=== PATIENT | male | born 1990 | race Two or more races ===

== ENCOUNTER 2017-03-29 05:38 | Inpatient (IN) | payer OTHER ==
[2017-03-29] VITALS (11 sets, daily range): BP systolic 117–145; BP diastolic 78–99
[~2017-03-29] VITALS: Ht 170.2 cm; Wt 57.6 kg
[~2017-03-29 05:38] MED LIST: NKM
[2017-03-29] MEDS ORDERED: Dexamethasone 20mg/5ml IVP ONE (06:00)
[2017-03-29] MEDS ORDERED: LR 1000ml 1,000 ML IVLG SCH (06:12)
[2017-03-29] MEDS ORDERED: Atropine Inj 1mg/10ml Syr IV PRN (06:15)
[2017-03-29] MEDS ORDERED: DiphenhydrAMINE 50mg/ml Inj IVP PRN (06:15)
[2017-03-29] MEDS ORDERED: HYDROcodone/Acetamin 7.5/325 tab ORAL PRN (06:15)
[2017-03-29] MEDS ORDERED: LORazepam Inj 2mg/ml 1ml IV PRN (06:15)
[2017-03-29] MEDS ORDERED: Ketorolac 60mg Inj IV PRN (06:15)
[2017-03-29] MEDS ORDERED: Ketorolac 30mg Inj IV PRN (06:15)
[2017-03-29] MEDS ORDERED: Norco 5mg/325mg tab ORAL PRN (06:15)
[2017-03-29] MEDS ORDERED: oxyCODONE HCL/Acetaminophen 5/325mg ORAL PRN (06:15)
[2017-03-29] MEDS ORDERED: Hydromorphone 0.5mg/0.5ml inj IVP PRN (06:15)
[2017-03-29] MEDS ORDERED: fentaNYL 100 mcg/2 mL IV PRN (06:15)
[2017-03-29] MEDS ORDERED: Labetalol 5mg/ml 20ml vial IV PRN (06:15)
[2017-03-29] MEDS ORDERED: Midazolam 2mg/2ml Inj IVP PRN (06:15)
[2017-03-29] MEDS ORDERED: Thrombin 5000 units TOPIC ONE (06:24)
[2017-03-29] MEDS ORDERED: Surgicel 4in x 8in TOPIC ONE (06:25)
[2017-03-29] MEDS ORDERED: Lidocaine 1% Plain 30 ml INJ ONE (06:25)
[2017-03-29] MEDS ORDERED: Bacitracin 50000 Units Vial ONE (06:26)
[2017-03-29] MEDS ORDERED: Vancomycin 1gm inj IVPB ONE (06:26)
--- NOTE | 2017-03-29 06:53 | Anethesia Preoperative Eval ---
Anesthesia Pre-op PMH/ROS General Date of Evaluation: Mar 29, 2017 Time of Evaluation: 07:11 Anesthesiologist: Chidi ASA Score: ASA 1 Mallampati Score Class I : Soft palate, uvula, fauces, pillars visible Class II: Soft palate, uvula, fauces visible Class III: Soft palate, base of uvula visible Class IV: Only hard plate visible Mallampati Classification: Class I Surgeon: Tyree Diagnosis: Neck Pain Surgical Procedure: ACDF C4-5, C5-6 Anesthesia History: none Family History: no anesthesia problems Allergies: Coded Allergies: No Known Allergies (Unverified , 03/29/17) Medications: see eMAR Anesthesia Pre-op Phys. Exam Physician Exam Last Vital Signs Date Time Temp Pulse Resp B/P (MAP) Pulse Ox O2 Delivery O2 Flow Rate FiO2 03/29/17 06:30 98.3 94 18 145/78 100 Room Air Constitutional: NAD Neurologic: CN 2-12 intact Cardiovascular: RRR Respiratory: CTA Gastrointestinal: S/NT/ND Airway Exam Mallampati Score: Class I MO: full ROM: full Teeth: intact Anesthesia Pre-op A/P Risk Assessment & Plan Assessment: ASA 1 Plan: GA, BIS, GlideScope Status Change Before Surgery: No Pre-Antibiotics Dru Grams Ancef IV Given Within 1 Hr of Incision: Yes Time Given: 07:36 Javier Murillo MD Mar 29, 2017 06:53
--- NOTE | 2017-03-29 06:54 | Immediate Post-Op Evaluation ---
Immediate Post-Op Evalulation Immediate Post-Op Evalulation Procedure: ACDF C4-5, C5-6 Date of Evaluation: Mar 29, 2017 Time of Evaluation: 10:35 IV Fluids: 800 LR Blood Products: 0 Estimated Blood Loss: 25 Urinary Output: 0 Blood Pressure Systolic: 140 Blood Pressure Diastolic: 101 Pulse Rate: 101 Respiratory Rate: 16 O2 Sat by Pulse Oximetry: 100 Temperature (Fahrenheit): 97.6 Pain Score (1-10): 3 Nausea: No Vomiting: No Complications 0 Patient Status: awake, reacts, patent, extubated, none Hydration Status: adequate Dru Grams Ancef IV Given Within 1 Hr of Incision: Yes Time Given: 07:36 Javier Murillo MD Mar 29, 2017 06:54
--- NOTE | 2017-03-29 06:55 | 48 Hour Post Anesthesia Eval ---
Post Anesthesia Evaluation Procedure: ACDF C4-5, C5-6 Date of Evaluation: Mar 29, 2017 Time of Evaluation: 12:42 Blood Pressure Systolic: 134 0: 78 Pulse Rate: 81 Respiratory Rate: 18 Temperature (Fahrenheit): 98.4 O2 Sat by Pulse Oximetry: 100 Airway: patent Nausea: No Vomiting: No Pain Intensity: 3 Hydration Status: adequate Cardiopulmonary Status: Stable Mental Status/LOC: patient returned to baseline Follow-up Care/Observations: 0 Post-Anesthesia Complications: 0 Follow-up care needed: ready to discharge Javier Murillo MD Mar 29, 2017 06:55
[2017-03-29] MEDS ORDERED: Lidocaine 1% MPF 10mg/ml 5ml ONE (07:00)
[2017-03-29] MEDS ORDERED: NS Irrig 1000ml ONE (07:00)
[2017-03-29] MEDS ORDERED: HYDROmorphone 1mg/ml Carpuject SUBQ PRN (07:00)
[2017-03-29] MEDS ORDERED: Milk of Magnesia 30ml Ud ORAL PRN (07:00)
[2017-03-29] MEDS ORDERED: Zemuron 50mg/5ml Inj IV ONE (07:00)
[2017-03-29] MEDS ORDERED: Sterile Water Irrig 1000ml IRRIG ONE (07:00)
[2017-03-29] MEDS ORDERED: ceFAZolin sod 1 GM in NS 55 ML IVP ONE (07:00)
[2017-03-29] MEDS ORDERED: Sodium Chloride 10ml vial INJ ONE (07:00)
[2017-03-29] MEDS ORDERED: Labetalol 5mg/ml 20ml vial IV ONE (07:00)
[2017-03-29] MEDS ORDERED: Dexamethasone 4mg/ml vial IVP ONE (07:00)
[2017-03-29] MEDS ORDERED: fentaNYL 100 mcg/2 mL IV ONE (07:00)
[2017-03-29] MEDS ORDERED: LR 1000ml ONE (07:00)
[2017-03-29] MEDS ORDERED: HYDROcodone/Acetamin 10/325 tab ORAL PRN (07:00)
[2017-03-29] MEDS ORDERED: Propofol 1,000mg/ 100ml btl IV ONE (07:00)
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
[2017-03-29] MEDS ORDERED: Acetaminophen (Non formulary) 100 ML IV ONE (07:30)
--- NOTE | 2017-03-29 10:36 | Brief Operative Note ---
Immediate Post Operative Note Operative Note Pre-op Diagnosis: Post trauma neck pain, herniated nucleus pulposus, radiculopathy Procedure: ACDF C4-5, C5-6 Anterior Plate C4-5-6 Bio4 C4-5, C5-6 Microscopic Dissection SSEP Xray Post-op Diagnosis: same as pre-op Findings: consistent w/pre-op dx studies Surgeon: Tyree SEVERINO Ship Fastener: Yolanda BELTRAN Anesthesiologist: Chidi Anesthesia: general Specimen: none Complications: none Condition: stable Fluids: anesthesia Estimated Blood Loss: minimal Drains: none Implant(s) used?: Yes JOSE RAMON NELSON Mar 29, 2017 10:36
[2017-03-29] MEDS ORDERED: Naloxone 0.4mg/ml Inj IVP PRN (10:45)
--- NOTE | 2017-03-29 11:05 | Diagnostic Imaging Report ---
Indication: Pain, intraoperative Technique: Intraoperative images Comparison: none Findings: Intraoperative images document anterior fusion of C4-C6 with anterior plate and screws, placement of disc spacers at C4-5 and C5-6. Impression: Intraoperative imaging, as described
[2017-03-29] MEDS ORDERED: Dronabinol 2.5mg Cap ORAL SCH (13:00)
[2017-03-29] MEDS: D5 1/2NS 1,000 ML IV SCH ×2 (13:00→14:01)
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
[2017-03-29] MEDS ORDERED: ceFAZolin sod 1 GM in NS 55 ML IV SCH (16:00)
[2017-03-29] MEDS ORDERED: NORCO 10-325 T1 EACH ORAL (17:31)
--- NOTE | 2017-03-29 19:45 | Operative Note - Dictated ---
DATE OF OPERATION: 03/29/2017 SURGEON: Don Clements M.D. MOHS SURGEON: RUBY Frias. ANESTHESIOLOGIST: Javier Murillo M.D. ANESTHESIA: General with intubation. ADMITTING/PREOPERATIVE DIAGNOSIS: Posttraumatic discogenic neck pain with radiculopathy. POSTOPERATIVE DIAGNOSIS: Posttraumatic discogenic neck pain with radiculopathy. OPERATIVE PROCEDURES: 1. Anterior cervical diskectomy with interbody reconstruction titanium and fusion, C4-C5, C5-C6. 2. Anterior internal plate fixation C4-C5, C5-C6. 3. Placement of osteopromotive material Bio-4, C4-C5, C5-C6. 4. High-powered microscopic dissection. 5. SSEP monitoring. 6. Intraoperative fluoroscopy interpreted by surgeons. ESTIMATED BLOOD LOSS: Minimal. COMPLICATIONS: None. POSTOPERATIVE CONDITION: Good/stable. OPERATIVE PROCEDURE: The patient was brought to the operating room and in the supine position, general anesthesia with intubation was induced. Intravenous antibiotics and intravenous Decadron were administered 30 minutes prior to incision time. After appropriate positioning, a needle within its sheath - not penetrating the skin - was taped to the lateral aspect of the cervical spine with a cross-table image being obtained, interpreted by surgeons for determination of incision level placement. Interval was marked with sterile marking pen. Needle removed. Skin sterilely prepped and draped free in usual sterile fashion. A transverse incision at the appropriate interval, left, was made from medial to the overlying the left medial aspect of the sternocleidomastoid muscle. Sharp dissection was through dermis and epidermis. Electrocautery dissection was carried through subcutaneous tissue to the level of the platysma muscle that was identified, isolated, and transected in line with the incision. Blunt dissection was carried sequentially through the deep cervical and pretracheal fascia medial to the sternocleidomastoid muscle and carotid sheath. The midline was exposed with blunt dissection. The needle bent at 90-degree angle so as to avoid penetration greater than 3 mm placed into the disc space and a cross-table image was obtained under sterile conditions demonstrating the correct level for further dissection. Level was marked. Needle removed. Subperiosteal dissection of the longus colli muscles was undertaken bilaterally over the appropriate intervals, 3 mm in the mediolateral extent. Retractors were placed at the C4-C5 interval. A needle was placed into the disc space and a cross-table image under sterile conditions was obtained demonstrating the correct level at C4-C5. Needle was removed. Level marked. Annulotomy followed diskectomy to the posterior longitudinal ligament, dissection of anterior osteophytes, and placed new with Midas Shay bur dissection of caudal cartilage. Trial implants utilized for determination of the correct size. Correct size implant was opened sterilely and packed centrally with Bio-4 osteopromotive material. Tamped into position under direct observation. Cross-table imaging obtained demonstrating correct alignment and position. Attention was turned to the C5-C6 interval with retractors placed at that interval. Anterior osteophytes resected with Midas Shay bur dissection under high-power magnification. SSEP monitoring stable at all times. Annulotomy followed with diskectomy and denuding of the endplates with the Midas Shay bur dissection undertaken. Implant size determined. The patient was stable with SSEP at all times, implanted with Bio-4 osteopromotive material. Excellent alignment. Cross-table imaging confirmation. A 10-pound of traction on the neck was removed. Wound was irrigated with antibiotic-containing saline. Anterior internal plate fixation, bilateral 15 mm screws at C4, C5, and C6 in a compressive fashion undertaken with screw purchase excellent. Screws locked into position. Fluoroscopic image obtained and printed demonstrating correct levels, excellent alignment, and positioning. Wound was irrigated with antibiotic-containing saline. Exploration under high-power magnification revealed no obvious excoriation or laceration of vital structures. A thin layer of FloSeal applied overlying the longus colli muscles. Vancomycin powder 500 milligrams applied. Reapproximation of Vicryl suture material of the platysma muscle. Subcutaneous/subcuticular reapproximation of dermis and epidermis. Surgical strips transverse to the incision followed with Dermabond. After the Dermabond had dried, sterile bandage applied and maintained in place with tape. The patient awakened, extubated in the operating room, and transported to postop recovery in good stable condition. Don Clements M.D. DR: GORGE JOB#: [id number] CC:
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
== END 2017-03-29 19:55 | disposition home or self-care (01) | DRG 30 ==
LOC: SUR 05:38 → EDSTATUS 07:00 → 3E 10:36 → SUR 11:30 → 3E 11:30 → SUR 19:55
DX: M54.12 Radiculopathy, cervical region (principal); G89.18 Other acute postprocedural pain; M53.82 Other specified dorsopathies, cervical region; Z87.828 Personal history of other (healed) physical injury and trauma; Z87.891 Personal history of nicotine dependence
CPT/HCPCS: 36415; 72040; 76001; 86850; 86900; 86901; 87081; 94003; 94150; J2405